=== PATIENT | female | born 1960 | race American Indian/Alaskan Native ===

== ENCOUNTER 2020-03-09 08:09 | Day surgery (SDC) | payer BC ==
[~2020-03-09 08:09] MED LIST: SODIUM CHLORIDE 0.9% 1000 ML 1,000 ML IV SCH
[2020-03-09] MEDS ORDERED: propofoL 200 MG/20 ML VIAL IV ONE (10:33)
[2020-03-09] MEDS ORDERED: LIDOCAINE MPF (2%) 20 MG/1 ML VIAL 5 ML ONE (10:33)
[2020-03-09] MEDS ORDERED: WATER FOR IRRIG STERILE 1,000 ML BOTTLE ONE (10:44)
--- NOTE | 2020-03-09 10:44 | Anesthesia Consultation ---
Anesthesia Consult and Med Hx Date of service: 03/09/20 - Airway Anesthetic Teeth Evaluation: Poor, Partials ROM Head & Neck: Adequate Mental/Hyoid Distance: Adequate Mallampati Class: Class II Intubation Access Assessment: Probably Good - Pulmonary Exam CTA: Yes - Cardiac Exam Cardiac Exam: RRR - Pre-Operative Health Status ASA Pre-Surgery Classification: ASA2 Proposed Anesthetic Plan: MAC - Pulmonary Hx Respiratory Symptoms: No - Cardiovascular System Hx Hypertension: Yes Hx Heart Attack/AMI: No Hx Percutaneous Transluminal Coronary Angioplasty (PTCA): No - Central Nervous System CVA: No - Gastrointestinal Hx Gastroesophageal Reflux Disease: No - Endocrine Hx Renal Disease: No Hx Liver Disease: No Hx Non-Insulin Dependent Diabetes: Yes Hx Hypothyroidism: Yes - Other Systems Hx Obesity: Yes (BMI 33)
--- NOTE | 2020-03-09 10:45 | Anesthesia Day of Surgery ---
Anesthesia Day of Surgery - Day of Surgery Patient Examined: Yes Patient H&P Reviewed: Yes Patient is NPO: Yes
--- NOTE | 2020-03-09 10:56 | Short Stay Summary ---
Short Stay Documentation Date of service: 03/09/20 Narrative H&P: The patient presents for routine screening colonoscopy. Last study was 11 years ago. - History Past Medical History: diabetes, HIV/AIDS, hypothyroidism Past Surgical History: hysterectomy Social history: no significant social history, lives with family, no smoking, no alcohol abuse - Allergies and Medications Current Medications: Allergies No Known Allergies Allergy (Verified 05/02/19 17:48) Home Medications Medication Instructions Recorded Confirmed Last Taken Type Lactose Fast Acting Relief 03/08/20 Unknown History Levothyroxine 03/08/20 Unknown History Lipitor 03/08/20 Unknown History Lisinopril 03/08/20 Unknown History Active Medications Sodium Chloride (Nacl 0.9% 1000 Ml) 1,000 mls @ 50 mls/hr IV DIRECT WILLIS - Physical exam General appearance: no acute distress, well-nourished HEENT: Atraumatic, PERRLA, EOMI, Mucous membr. moist/pink Lungs: Clear to auscultation, Normal air movement Breasts: deferred Heart: Regular rate, Normal S1, Normal S2, No murmurs Gastrointestinal: normoactive bowel sounds, no tenderness, no distended, no masses, no guarding, no organomegaly Female Genitourinary: deferred Rectal Exam: normal exam-external/orifice, stool brown Extremities: no ischemia, pulses intact, pulses symmetrical, No edema, normal temperature, normal color, Full ROM Neurological: Normal gait, Normal speech, Strength at 5/5 X4 ext, Normal tone, Sensation intact, Cranial nerves 3-12 NL - Brief post op/procedure progress note Date of procedure: 03/09/20 Findings: see dictation, aborted exam due to poor prep. Estimated blood loss: none Pathology: none Condition: stable - Disposition Condition at discharge: Good Disposition: DC-01 TO HOME OR SELFCARE - Discharge Diagnoses (1) Colon cancer screening Status: Acute Short Stay Discharge Plan Activity: other Weight Bearing Status: Full Weight Bearing Diet: regular Follow up with: ROSALBA JASSO MD [Primary Care Provider] - 7 Days
--- NOTE | 2020-03-09 11:00 | Operative Report ---
Operative Report Operative Report: Date of procedure: 03/09/2020 Preprocedure diagnosis: Colon cancer screening, routine. Average risk profile. Post procedure diagnosis: Poor prep with aborted examination at the sigmoid colon. Procedure: Colonoscopy to the sigmoid colon Endoscopist: Dr. Mcknight Anesthesia: Monitored anesthesia care per anesthesia department Estimated blood loss: 0 Medications: Monitored anesthesia care. See separate report by anesthesia for details. After careful discussion of the nature and purpose of the procedure as well as details of the technique risks benefits and alternatives the patient gave consent. Please see recent history and physical from the office. The patient was placed in the left lateral decubitus position and medicated per anesthesia. A rectal exam was performed sphincter tone was normal there were no masses palpable. The Olympus pediatric colonoscope was passed transanally and advanced under continuous direct vision to the sigmoid colon. The colon preparation was extremely poor. The scope was advanced under continuous direct vision to the sigmoid colon with the prep appeared increasingly poor and unsafe to complete the exam. The rectum was grossly normal on a limited view. The procedure was well-tolerated overall and the patient was observed in recovery. Conclusions: Poor colon preparation with aborted exam at the sigmoid colon. Plan: Repeat exam within the next 3 months with enhanced preparation. Signed electronically: Yanick Mcknight M.D.
--- NOTE | 2020-03-09 12:18 | Post Anesthesia Evaluation ---
- Post Anesthesia Evaluation Patient Participated: Yes Airway Patent: Yes Stable Respiratory Function: Yes Nausea/Vomiting: No Temp > 96.8F: Yes Pain Manageable: Yes Adequeate Hydration: Yes Anesthesia Complications: No
[2020-03-09 19:49] VITALS: BP 137/78
== END 2020-03-09 08:10 | disposition home or self-care (01) ==
LOC: GIO 08:09
PROVIDERS: ATTEND Internal Medicine Gastroenterology
DX: Z12.11 Encounter for screening for malignant neoplasm of colon (principal); I10 Essential (primary) hypertension; E11.9 Type 2 diabetes mellitus without complications; E03.9 Hypothyroidism, unspecified; B20 Human immunodeficiency virus [HIV] disease; E66.9 Obesity, unspecified; Z68.33 Body mass index [BMI] 33.0-33.9, adult; Z79.899 Other long term (current) drug therapy
CPT/HCPCS: 45378; 82962; J2704; J7030